=== PATIENT | female | born 1975 | race Hispanic/Latino ===

== ENCOUNTER 2021-03-18 23:18 | Emergency (ER) | payer OTHER ==
[~2021-03-18] VITALS: Ht 149.9 cm; Wt 51.0 kg
[~2021-03-18 23:18] MED LIST: TORADOL OR
[2021-03-18 23:56] LABS: HEMATOCRIT 38.9 % (37.0-47.0); HEMOGLOBIN 13.4 g/dl (12.0-16.0); IMMATURE GRANULOCYTES 0.4 % (0.0-5.0); MEAN CELL VOLUME 87.8 fL CALC (80.0-100.0); MEAN CORPUSCULAR HGB 30.2 pG CALC (26.0-32.0); MEAN CORPUSCULAR HGB CONC 34.4 g/dL CAL (32.0-36.0); NEUT# 4.1 thou/uL (2.00-7.15); RED BLOOD COUNT 4.43 mill/uL (4.20-5.60)
[2021-03-19 00:15] LABS: ALKALINE PHOSPHATASE 78 u/l (38-126); ANION GAP 10 (6-22 (CALC)); BILIRUBIN, TOTAL 0.2 mg/dL (0.0-1.4); BUN 4 mg/dL (7-17); BUN/CREATININE RATIO 10 (12-20 (CALC)); CARBON DIOXIDE 22 mmol/l (22-30); CHLORIDE 102 mmol/l (95-108); CREATININE 0.4 mg/dL (0.5-1.0); GFR > 60 ML/MIN (>=60 (CALC)); GFR FOR AFR.AMER. > 60 ML/MIN (>=60 (CALC)); POTASSIUM 2.8 mmol/l (3.5-5.1); SGOT/AST 70 u/l (14-36); SODIUM 132 mmol/l (137-146); TOTAL PROTEIN 7.3 g/dL (6.3-8.2)
[2021-03-19 00:33] LABS: URINE BILIRUBIN - DIPSTICK NEGATIVE (NEGATIVE); URINE BLOOD DIPSTICK LARGE (NEGATIVE); URINE COLOR YELLOW; URINE GLUCOSE - DIPSTICK NEGATIVE (NEGATIVE); URINE KETONE NEGATIVE (NEGATIVE); URINE PROTEIN - DIPSTICK 30 mg/dL (NEG-TRACE); URINE SPECIFIC GRAVITY 1.015; URINE UROBILINOGEN - DIPSTICK 0.2 E.U./dL (0.2)
[2021-03-19 00:36] LABS: URINE LEUK ESTERASE NEGATIVE (NEGATIVE); URINE NITRITE - DIPSTICK NEGATIVE (Negative)
[2021-03-19 00:40] LABS: URINE BACTERIA MODERATE hpf; URINE EPITHELIAL CELLS FEW EPI/hpf (0-FEW)
[2021-03-19] MEDS ORDERED: MEDDOSEPAK PO (05:38)
[2021-03-19] MEDS ORDERED: ZITHROMAX250 MG PO (05:38)
[2021-03-19 06:01] VITALS: BP 100/59
== END 2021-03-19 06:25 | disposition home or self-care (01) | DRG 177 ==
LOC: ED 23:18
PROVIDERS: Emergency Medicine
DX: U07.1 COVID-19 (principal); J12.82 Pneumonia due to coronavirus disease 2019; E87.6 Hypokalemia
CPT/HCPCS: Q9967

== ENCOUNTER 2021-03-25 17:31 | Emergency (ER) | payer OTHER ==
[~2021-03-25] VITALS: Ht 149.9 cm; Wt 50.0 kg
[~2021-03-25 17:31] MED LIST changes: +MEDDOSEPAK PO; +ZITHROMAX250 MG PO
[2021-03-25 18:22] LABS: HEMATOCRIT 38.9 % (37.0-47.0); HEMOGLOBIN 13.1 g/dl (12.0-16.0); IMMATURE GRANULOCYTES 4.7 % (0.0-5.0); MEAN CORPUSCULAR HGB 30.3 pG CALC (26.0-32.0); MEAN CORPUSCULAR HGB CONC 33.7 g/dL CAL (32.0-36.0); NEUT# 6.06 thou/uL (2.00-7.15); RED BLOOD COUNT 4.32 mill/uL (4.20-5.60); RED CELL DISTRI WIDTH 12.4 % (11.5-15.5)
[2021-03-25 18:35] LABS: ALBUMIN 3.8 g/dL (3.2-5.0); ALKALINE PHOSPHATASE 87 u/l (38-126); ANION GAP 11 (6-22 (CALC)); BILIRUBIN, TOTAL 0.5 mg/dL (0.0-1.4); BUN 6 mg/dL (7-17); BUN/CREATININE RATIO 14 (12-20 (CALC)); CARBON DIOXIDE 23 mmol/l (22-30); CHLORIDE 104 mmol/l (95-108); CREATININE 0.4 mg/dL (0.5-1.0); GFR > 60 ML/MIN (>=60 (CALC)); GFR FOR AFR.AMER. > 60 ML/MIN (>=60 (CALC)); POTASSIUM 3.3 mmol/l (3.5-5.1); SGOT/AST 34 u/l (14-36); SODIUM 135 mmol/l (137-146); TOTAL PROTEIN 7.1 g/dL (6.3-8.2)
[2021-03-25 19:15] LABS: URINE BILIRUBIN - DIPSTICK NEGATIVE (NEGATIVE); URINE BLOOD DIPSTICK TRACE-INTACT (NEGATIVE); URINE COLOR YELLOW; URINE GLUCOSE - DIPSTICK NEGATIVE (NEGATIVE); URINE KETONE NEGATIVE (NEGATIVE); URINE LEUK ESTERASE NEGATIVE (NEGATIVE); URINE PROTEIN - DIPSTICK NEGATIVE (NEG-TRACE); URINE SPECIFIC GRAVITY <=1.005; URINE UROBILINOGEN - DIPSTICK 0.2 E.U./dL (0.2)
[2021-03-25 19:16] LABS: URINE NITRITE - DIPSTICK NEGATIVE (Negative)
[2021-03-25 20:24] VITALS: BP 110/62
== END 2021-03-25 20:25 | disposition home or self-care (01) | DRG 177 ==
LOC: ED 17:31
PROVIDERS: Family Medicine
DX: U07.1 COVID-19 (principal); J12.82 Pneumonia due to coronavirus disease 2019; E87.6 Hypokalemia

== ENCOUNTER 2024-03-31 06:32 | Emergency (ER) | payer OTHER ==
[~2024-03-31] VITALS: Ht 149.9 cm; Wt 72.0 kg
[2024-03-31] MEDS ORDERED: IBUPROFEN 200 MG/TAB PO ONE (06:45)
[2024-03-31 07:50] VITALS: BP 105/66
[2024-03-31] MEDS ORDERED: ACETAMINOPHEN 500 MG TAB PO ONE (07:55)
[2024-03-31 08:00] VITALS: BP 107/59
[2024-03-31 08:15] VITALS: BP 106/65
[2024-03-31 08:30] VITALS: BP 106/64
[2024-03-31] MEDS ORDERED: MOTRIN400 MG/TAB PO (08:34)
[2024-03-31 08:49] VITALS: BP 106/64
== END 2024-03-31 08:55 | disposition home or self-care (01) | DRG 605 ==
LOC: ED 06:32
DX: S00.33XA Contusion of nose, initial encounter (principal); S00.31XA Abrasion of nose, initial encounter; R07.81 Pleurodynia; V59.50XA Passenger in pick-up truck or van injured in collision with unspecified motor vehicles in traffic accident, initial encounter